=== PATIENT | female | born 1955 | race American Indian/Alaskan Native ===

== ENCOUNTER 2021-12-04 21:16 | Emergency (ER) | payer MEDICARE ==
[2021-12-04] MEDS ORDERED: SODIUM CHLORIDE 0.9% 1000 ML 1,000 ML IV ONE (21:51)
--- NOTE | 2021-12-04 22:23 | Cat Scan Report ---
CT HEAD WITHOUT CONTRAST INDICATION / CLINICAL INFORMATION: syncope. TECHNIQUE: All CT scans at this location are performed using CT dose reduction for ALARA by means of automated exposure control. COMPARISON: None available. FINDINGS: BRAIN PARENCHYMA: No acute intracranial hemorrhage. No evidence of recent infarct. No mass effect or midline shift. VENTRICULAR SYSTEM/EXTRA-AXIAL SPACES: Ventricles are normal for age. No extra-axial fluid collection . ORBITS: Normal as visualized. SKELETAL SYSTEM/SOFT TISSUES: Normal bones and soft tissues. PARANASAL SINUSES/MASTOID AIR CELLS: No significant abnormality. ADDITIONAL FINDINGS: None. IMPRESSION: 1. No acute intracranial abnormality. Signer Name: Donato Dahl MD Signed: 12/04/2021 10:19 PM Workstation Name: [id number]
[2021-12-04 22:57] LABS: Basophils # (Auto) 0.1 K/mm3 (0.0-0.1); Basophils % (Auto) 0.6 % (0.0-1.8); Eosinophils % (Auto) 0.3 % (0.0-4.3); Hemoglobin 10.3 gm/dl (10.1-14.3); Lymphocytes # (Auto) 1.6 K/mm3 (1.2-5.4); Lymphocytes % (Auto) 13.3 % (13.4-35.0); Mean Corpuscular HGB Conc 33 % (30-34); Mean Corpuscular Volume 78 fl (79-97); Monocytes # (Auto) 1.6 K/mm3 (0.0-0.8); Monocytes % (Auto) 13.6 % (0.0-7.3); Platelet Count 270 K/mm3 (140-440); Red Blood Count 3.98 M/mm3 (3.65-5.03); Red Cell Distribution Width 14.6 % (13.2-15.2)
--- NOTE | 2021-12-04 23:04 | Emergency Department Report ---
ED Syncope HPI - General Chief Complaint: Syncope Stated Complaint: SYNCOPE Time Seen by Provider: 12/04/21 21:35 - History of Present Illness Initial Comments: 66 yo F with h/o Hypertension and Diabetes who present with syncope episode that occurred while she was walking out of the toilet after finishing having constipated stools. She reports feeling dizzy when she got up and then fell. She denies hitting her head on the floor. She denies any joint or bone pain. No other modifying or associated factors reported. - Related Data Allergies/Adverse Reactions: Allergies No Known Allergies Allergy (Verified 12/04/21 22:49) ED Review of Systems ROS: Stated complaint: SYNCOPE Other details as noted in HPI Comment: All other systems reviewed and negative Cardiovascular: syncope Gastrointestinal: constipation ED Physical Exam - General Limitations: No Limitations General appearance: alert, in no apparent distress - Head Head exam: Present: atraumatic, normal inspection - Eye Eye exam: Present: normal appearance Pupils: Present: normal accommodation - ENT ENT exam: Present: normal exam, normal orophraynx, mucous membranes dry - Neck Neck exam: Present: normal inspection, full ROM. Absent: tenderness - Respiratory Respiratory exam: Present: normal lung sounds bilaterally. Absent: respiratory distress, accessory muscle use - Cardiovascular Cardiovascular Exam: Present: regular rate, normal rhythm, normal heart sounds - GI/Abdominal GI/Abdominal exam: Present: soft, normal bowel sounds. Absent: distended, tenderness - Extremities Exam Extremities exam: Present: normal inspection, normal capillary refill. Absent: tenderness, pedal edema - Back Exam Back exam: Absent: tenderness - Neurological Exam Neurological exam: Present: alert, oriented X3 - Psychiatric Psychiatric exam: Present: normal affect, normal mood - Skin Skin exam: Present: warm, intact ED Course Vital Signs 12/04/21 12/05/21 21:57 02:19 Pulse Rate 67 98 H Respiratory 14 14 Rate Blood Pressure 112/49 116/59 [Right] O2 Sat by Pulse 98 Oximetry ED Medical Decision Making - Lab Data Result diagrams: 12/04/21 22:31 12/04/21 22:31 - EKG Data -: EKG Interpreted by Me EKG shows normal: sinus rhythm Rate: normal - EKG Data 12/05/21 05:12 EKG noted with normal sinus rhythm at a rate of 79 bpm with left bundle branch block no old EKG to compare with this abnormal ECG. - Medical Decision Making Here with syncope episode shortly after having constipated stooling -- this is likely vasovagal related to dehydration--but differential could be and not limited to seizure, symptomatic anemia, myocardial infarction, pulmonary embolism, anxiety, CVA especially posterior stroke or thyroid abnormality--in order to rule those out I will go ahead and order routine cardiopulmonary work- up that include troponin, EKG, chest x-ray, BNP, CKMB, and CBC, CMP, Urinalysis and thyroid panel for any correctable infectious process or electrolyte abnormality as a cause. Will also order CT brain for any intracranial abnormality as mentioned above. In the meantime will give ivf ns 1L bolus for hydration as most of these age group are dehydrated to begin with. Noted with unremarkable chemistry and hematology--the above is likely as a result of vasovagal patient encouraged to drink plenty of fluids for hydration Critical care attestation.: If time is entered above; I have spent that time in minutes in the direct care of this critically ill patient, excluding procedure time. ED Disposition Clinical Impression: Vasovagal syncope Syncope Qualifiers: Syncope type: unspecified Qualified Code(s): R55 - Syncope and collapse Disposition: 01 HOME / SELF CARE / HOMELESS Is pt being admited?: No Does the pt Need Aspirin: No Condition: Stable Instructions: Syncope (ED), Syncope, [id number], Near-Syncope, [id number] Additional Instructions: Increase your daily fluid to help your hydration : Follow-up with your primary doctor in the next 3 to 5 days for progress Please do not hesitate to call or return to emergency if your symptoms worsen Referrals: PRIMARY CARE [Primary Care Provider] - 3-5 Days Time of Disposition: 05:14
[2021-12-04 23:12] LABS: INR 0.9 (0.87-1.13); Partial Thromboplastin Time 25.5 Sec. (24.2-36.6)
[2021-12-04 23:13] LABS: Alanine Aminotransferase 15 units/L (7-56); Albumin 4.4 g/dL (3.9-5); BUN/Creatinine Ratio 12; Blood Urea Nitrogen 12 mg/dL (7-17); Calcium 9.6 mg/dL (8.4-10.2); Hemolysis Index 0
[2021-12-04 23:24] LABS: Free T4 (Free Thyroxine) 1.11 ng/dL (0.76-1.46)
[2021-12-05] MEDS ORDERED: SODIUM CHLORIDE 0.9% 1000 ML 1,000 ML ONE (01:46)
[2021-12-05 02:42] LABS: RBC,Urine < 1.0 /HPF (0.0-6.0); WBC,Urine < 1.0 /HPF (0.0-6.0)
[2021-12-05 02:48] LABS: Color,Urine Colorless (Yellow)
[2021-12-05 02:51] LABS: Bilirubin,Urine NEG (Negative); Blood,Urine NEG (Negative); Protein,Urine <15 mg/dL mg/dL (Negative); Urobilinogen,Urine < 2.0 mg/dL (<2.0)
[2021-12-05 05:34] VITALS: BP 111/60
--- NOTE | 2021-12-07 18:50 | Electrocardiograph Report ---
[facility] Test Date: 2021-12-04 Test Time: 23:40:46 Pat Name: YVON QUIGLEY Department: Room: Gender: F [employer] Analyst: ANGELLA : 1955 Requested By: AG BRISENO Order Number: [id number] Reading MD: Che Johnson Measurements Intervals [place] Rate: 79 P: 40 UT: 250 QRS: -7 QRSD: 156 T: 133 QT: 410 QTc: 469 Interpretive Statements Sinus rhythm Prolonged UT interval Left bundle branch block No previous ECG available for comparison Electronically Signed On 12-07-2021 18:49:40 EDT by Che Johnson
== END 2021-12-05 05:34 | disposition home or self-care (01) ==
LOC: ED 21:16
DX: R55 Syncope and collapse (principal); I10 Essential (primary) hypertension
CPT/HCPCS: 36415; 70450; 80053; 81001; 83880; 84439; 84443; 84484; 85025; 85610; 85730; 93005; 96360; 99284; J7030